=== PATIENT | female | born 1965 | race Caucasian/White ===

== ENCOUNTER 2022-01-03 18:59 | Emergency (ER) | payer BC ==
[2022-01-03] MEDS ORDERED: Nitroglycerin 0.4 MG Tab.SL SL STA (19:38)
[2022-01-03] MEDS ORDERED: Aspirin 81 MG Tab.Chew PO ONE (19:38)
== END 2022-01-03 23:14 | disposition home or self-care (01) ==
LOC: JD.ED 18:59
DX: R07.89 Other chest pain (principal); I48.91 Unspecified atrial fibrillation; I10 Essential (primary) hypertension; Z88.0 Allergy status to penicillin; Z88.1 Allergy status to other antibiotic agents
CPT/HCPCS: 36415; 71045; 80053; 84484; 85025; 85610; 93005; 99285; A9270

== ENCOUNTER 2022-02-23 13:09 | Emergency (ER) | payer BC ==
[2022-02-23] MEDS ORDERED: Albuterol/Ipratropium 3.0-0.5 MG/3 ML Neb Soln NEB ONE (13:58)
[2022-02-23] MEDS ORDERED: Ketorolac 60 MG/2 ML SDV IM ONE (15:21)
[2022-02-23] MEDS ORDERED: predniSONE 10 MG Tab PO ONE (15:21)
[2022-02-23] MEDS ORDERED: Cefdinir 300 MG Cap PO ONE (15:21)
[2022-02-23] MEDS ORDERED: Azithromycin 250 MG Tab PO ONE (15:27)
== END 2022-02-23 16:52 | disposition home or self-care (01) ==
LOC: JD.ED 13:09
DX: J18.0 Bronchopneumonia, unspecified organism (principal); I10 Essential (primary) hypertension; Z88.1 Allergy status to other antibiotic agents; Z88.0 Allergy status to penicillin; R06.02 Shortness of breath
CPT/HCPCS: 71250; 94640; 96372; 99285; A9270; J1885; J7512; 93010; 99284; J7620-GY

== ENCOUNTER 2023-04-14 08:11 | Emergency (ER) | payer OTHER, BC ==
[2023-04-14] MEDS ORDERED: Lactated Ringers 1,000 ML IV SCH (08:30)
[2023-04-14 08:44] LABS: BASOPHILS ABSOLUTE AUTO 0.1 K/mm3 (0.0-0.2); BASOPHILS PERCENT AUTO 1.3 % (0.0-1.0); EOSINOPHILS ABSOLUTE AUTO 0.1 K/mm3 (0.0-0.4); EOSINOPHILS PERCENT AUTO 2.3 % (0.0-6.0); HEMOGLOBIN 13.6 gm/dl (12.0-16.0); IMMATURE GRAN ABSOLUTE AUTO 0.01 K/mm3 (0.00-0.05); IMMATURE GRAN PERCENT AUTO 0.2 % (0.0-0.4); LYMPHOCYTES ABSOLUTE AUTO 1.4 K/mm3 (1.0-4.8); LYMPHOCYTES PERCENT AUTO 30.4 % (24.0-44.0); MEAN CORPUSCULAR HEMOGLOBIN 30.8 pg (28.0-32.0); MEAN CORPUSCULAR VOLUME 90.5 fl (83.0-99.0); MEAN PLATELET VOLUME 10.4 fl (9.4-12.3); MONOCYTES ABSOLUTE AUTO 0.4 K/mm3 (0.0-0.8); MONOCYTES PERCENT AUTO 8.5 % (0.0-8.0); NEUTROPHILS ABSOLUTE AUTO 2.7 K/mm3 (1.8-7.7); NEUTROPHILS PERCENT AUTO 57.3 % (41.0-71.0); PLATELET COUNT,PLT 206 K/mm3 (150-400); RED BLOOD CELL COUNT 4.42 M/mm3 (4.10-5.30); WHITE BLOOD CELL COUNT,WBC 4.71 K/mm3 (3.9-11.3)
[2023-04-14] MEDS ORDERED: Iopamidol 612 MG/ML 100 ML Bottle IVPUSH ONE (08:56)
[2023-04-14] MEDS ORDERED: Sodium Chloride 0.9% 10 ML Syringe FLUSH PRN (08:56)
[2023-04-14 09:05] LABS: A/G RATIO 1.2 (1-2); ALBUMIN 4.1 g/dl (3.4-5.0); ANION GAP 12.8 (5-15); BILIRUBIN TOTAL 0.5 mg/dL (0.2-1.0); CALCIUM 9.5 mg/dL (8.5-10.1); CREATININE 0.9 mg/dL (0.55-1.02); EST CRCL DRUG DOSING (CG) 62.06 mL/min; POTASSIUM,K 3.8 mEq/L (3.5-5.1); PROTEIN TOTAL,TP 7.5 g/dl (6.4-8.2)
[2023-04-14 09:52] LABS: APPEARANCE,URINE TURBID (Clear); BILIRUBIN,URINE NEGATIVE (Negative); COLOR,URINE LIGHT YELLOW (Yellow); GLUCOSE,URINE NEGATIVE (Negative); KETONES,URINE NEGATIVE (Negative); LEUKOCYTE ESTERASE,URINE NEGATIVE (Negative); NITRITE,URINE NEGATIVE (Negative); OCCULT BLOOD,URINE NEGATIVE (Negative); PH,URINE 6.5 (5.0-8.0); PROTEIN,URINE NEGATIVE (Negative); UROBILINOGEN,URINE 0.2 (0.2-1.0)
== END 2023-04-14 11:12 | disposition home or self-care (01) ==
LOC: JD.ED 08:11
DX: R07.81 Pleurodynia (principal); R51.9 Headache, unspecified; M54.2 Cervicalgia; R10.9 Unspecified abdominal pain; I48.91 Unspecified atrial fibrillation; I10 Essential (primary) hypertension; Z86.16 Personal history of COVID-19; Z79.899 Other long term (current) drug therapy; Z88.0 Allergy status to penicillin; Z88.1 Allergy status to other antibiotic agents; V59.9XXA Occupant (driver) (passenger) of pick-up truck or van injured in unspecified traffic accident, initial encounter; Y92.410 Unspecified street and highway as the place of occurrence of the external cause
CPT/HCPCS: 36415; 70450; 71260; 72125; 74177; 80053; 81003; 85025; 99284; J3490; J7120; Q9967